=== PATIENT | female | born 1970 | race Caucasian/White ===

== ENCOUNTER 2016-11-17 09:43 | Emergency (ER) | payer OTHER ==
[2016-11-17 09:48] VITALS: TEMP 98.5; BMI 24.0
[2016-11-17] MEDS ORDERED: Sodium Chloride 0.9% 1,000 ML IV STA (10:06)
[2016-11-17 10:37] LABS: ADD MANUAL DIFF? NO
[2016-11-17 10:49] LABS: ALB/GLOB RATIO 1.2 (1.1-1.8); ALKALINE PHOSPHATASE 56 U/L (38-133); ALT/SGPT 25 U/L (7-56); AST/SGOT 37 U/L (15-39); BILIRUBIN,TOTAL 1.2 mg/dL (0.2-1.3); BLOOD UREA NITROGEN 9 mg/dL (7-21); CARBON DIOXIDE 27 mmol/L (21-33); CHLORIDE 100 mmol/L (95-110); GFR AFRICAN-AMERICAN > 60; GLUCOSE,RANDOM 112 mg/dL (70-110); LIPASE 35 U/L (23-300); SODIUM 136 mmol/L (132-148); TOTAL PROTEIN 8.3 g/dL (5.8-8.3)
[2016-11-17 10:51] LABS: INR 1.03 (0.93-1.08); PARTIAL THROMBOPLASTIN TIME 30.3 Seconds (23.7-30.8)
[2016-11-17 10:58] LABS: URINE BILIRUBIN NEGATIVE (NEGATIVE); URINE BLOOD LARGE (NEGATIVE); URINE GLUCOSE (UA) NEGATIVE (NEGATIVE); URINE KETONE NEGATIVE (NEGATIVE); URINE LEUKOCYTE ESTERASE NEGATIVE Leu/uL (NEGATIVE); URINE PROTEIN NEGATIVE mg/dL (<30 mg/dL); URINE UROBILINOGEN 0.2 E.U./dL (<1 E.U./dL)
[2016-11-17 10:59] LABS: URINE APPEARANCE SL CLOUDY (CLEAR); URINE COLOR YELLOW (YELLOW)
[2016-11-17 11:00] LABS: BASO # 0.01 K/mm3 (0.0-2.0); BASO % 0.1 % (0.0-3.0); EOS # 0.1 (0.0-0.7); EOS % 0.5 % (1.5-5.0); GRAN # 8.51 (1.4-6.5); GRAN % 80.9 % (50.0-68.0); HEMATOCRIT 34.5 % (36.0-48.0); LYMPH # 1.4 (1.2-3.4); LYMPH % 12.8 % (22.0-35.0); MEAN CELL VOLUME 92.5 fL (80.0-105.0); MEAN CORPUSCULAR HEMOGLOBIN 32.2 pg (25.0-35.0); MEAN CORPUSCULAR HGB CONC 34.8 g/dl (31.0-37.0); MEAN PLATELET VOLUME 9.8 fl (7.0-11.0); MONO # 0.6 (0.1-0.6); MONO % 5.7 % (1.0-6.0); PLATELET COUNT 290 10^3/uL (120.0-450.0); RED CELL DISTRIBUTION WIDTH 12.1 % (11.5-14.5); WHITE BLOOD COUNT 10.5 10^3/ul (4.5-11.0)
[2016-11-17 11:02] LABS: URINE RBC 15 - 20 /hpf (0-2); URINE WBC 0 - 2 /hpf (0-6)
--- NOTE | 2016-11-17 11:20 | ED PDOC ---
Arrival/HPI - General Historian: Patient - General Chief Complaint: Abdominal Pain Time Seen by Provider: 11/17/16 09:56 - History of Present Illness Narrative History of Present Illness (Text): 11/17/16 11:17 46yo female with PMHx of RA and hypercholestrol present with complaint of sharp diffuse abdominal pain with associated nausea, vomiting and diarrhea x 2days. The last time she vomited was yesterday. Had an episode of diarrhea this morning. States she came to ED because her pain became increasingly worse. She notes that her sister had similar symptoms before her. she denies melena, hematemesis, tearing/ripping upper back pain, fever, chills, travel, urinary symptoms, chest pain. (Miquel Bennett) Past Medical History - Provider Review Nursing Documentation Reviewed: Yes - Infectious Disease Hx of Infectious Diseases: None - Tetanus Immunization Tetanus Immunization: Unknown - Cardiac Hx Cardiac Disorders: No - Pulmonary Hx Respiratory Disorders: No - Neurological Hx Neurological Disorder: No - HEENT Hx HEENT Disorder: No - Renal Hx Renal Disorder: No - Endocrine/Metabolic Hx Endocrine Disorders: No Other/Comment: RA - Hematological/Oncological Other/Comment: RHEUMATOID ARTHRITIS - Integumentary Hx Dermatological Disorder: No - Musculoskeletal/Rheumatological Hx Arthritis: Yes Other/Comment: RA - Gastrointestinal Hx Gastrointestinal Disorders: No - Genitourinary/Gynecological Hx Genitourinary Disorders: No - Psychiatric Hx Psychophysiologic Disorder: No Hx Depression: No Hx Emotional Abuse: No Hx Physical Abuse: No Hx Substance Use: No - Surgical History Hx Appendectomy: Yes Hx Section: Yes - Anesthesia Hx Anesthesia: No - Suicidal Assessment Feels Threatened In Home Enviroment: No Family/Social History - Physician Review Nursing Documentation Reviewed: Yes Family/Social History: Unknown Family HX Smoking Status: Never Smoked Hx Alcohol Use: No Hx Substance Use: No Hx Substance Use Treatment: No Allergies/Home Meds Allergies/Adverse Reactions: Allergies No Known Allergies Allergy (Verified 11/17/16 09:48) Home Medications: Home Meds Medication Instructions Recorded Confirmed Methotrexate Sodium/Pf 10 mg IM QWK 03/01/12 11/17/16 [Methotrexate] Etanercept [Enbrel] 50 mg IM QWK 03/31/14 11/17/16 Simvastatin [Simvastatin] 10 mg PO DAILY 11/17/16 11/17/16 Review of Systems - Physician Review All systems were reviewed & negative as marked: Yes - Review of Systems Constitutional: Normal Eyes: Normal ENT: Normal Respiratory: Normal Cardiovascular: Normal Gastrointestinal: Abdominal Pain, Diarrhea, Nausea, Vomiting. absent: Constipation, Hematochezia, Hematemesis Genitourinary Female: Normal Musculoskeletal: Normal Skin: Normal Neurological: Normal Endocrine: Normal Hemo/Lymphatic: Normal Psychiatric: Normal Physical Exam Vital Signs Reviewed: Yes Temperature: Afebrile Blood Pressure: Normal Pulse: Regular Respiratory Rate: Normal Appearance: Positive for: Well-Appearing, Non-Toxic, Comfortable Pain Distress: None Mental Status: Positive for: Alert and Oriented X 3 - Systems Exam Head: Present: Atraumatic, Normocephalic Pupils: Present: PERRL Extroacular Muscles: Present: EOMI Conjunctiva: Present: Normal Mouth: Present: Moist Mucous Membranes Neck: Present: Normal Range of Motion Respiratory/Chest: Present: Clear to Auscultation, Good Air Exchange. No: Respiratory Distress, Accessory Muscle Use Cardiovascular: Present: Regular Rate and Rhythm, Normal S1, S2. No: Murmurs Abdomen: Present: Tenderness (Diffuse tenderness), Normal Bowel Sounds, Scars ( Healed surgical scar noted), Other (Soft). No: Distention, Peritoneal Signs, Rebound, Guarding, McBurney's Point Tender, Rovsing's Sign Present Back: Present: Normal Inspection Upper Extremity: Present: Normal Inspection. No: Cyanosis, Edema Lower Extremity: Present: Normal Inspection. No: Edema Neurological: Present: GCS=15, CN II-XII Intact, Speech Normal Skin: Present: Warm, Dry, Normal Color. No: Rashes Psychiatric: Present: Alert, Oriented x 3, Normal Insight, Normal Concentration Medical Decision Making ED Course and Treatment: 11/17/16 11:24 PT presented for stated history. On re evaluation she stated her pain resolved. She was sleeping comfortably in ED. Her lab was unremarkable. Result was DW the pt. she was advised to follow BRAT diet. Referred to her PMD/GI. Advised TRT ED for any new or worsening symptoms. She expressed understanding of the given instructions. (Sabrina,Happiness A) I was available for consultation during PA evaluation. The chart was reviewed by me, and I agree with disposition. The documented history was done by the physician fence machine operator. The documented physical exam was done by the physician fence machine operator. The documented procedures were done by the physician fence machine operator. (Rock Vázquez) - Lab Interpretations Lab Results: 11/17/16 10:36 11/17/16 10:36 Lab Results 11/17/16 10:36: Sodium 136, Potassium 4.0, Chloride 100, Carbon Dioxide 27, Anion Gap 13, BUN 9, Creatinine 0.7, Est GFR ( Amer) > 60, Est GFR (Non- Af Amer) > 60, Random Glucose 112 H, Calcium 9.0, Total Bilirubin 1.2, AST 37, ALT 25, Alkaline Phosphatase 56, Total Protein 8.3, Albumin 4.5, Globulin 3.8, Albumin/Globulin Ratio 1.2, Lipase 35 11/17/16 10:36: Urine Color Yellow, Urine Appearance Sl cloudy, Urine pH 6.0, Ur Specific Luana 1.010, Urine Protein Negative, Urine Glucose (UA) Negative, Urine Ketones Negative, Urine Blood Large H, Urine Nitrate Negative, Urine Bilirubin Negative, Urine Urobilinogen 0.2, Ur Leukocyte Esterase Negative, Urine RBC 15 - 20, Urine WBC 0 - 2 11/17/16 10:36: PT 11.1, INR 1.03, APTT 30.3 11/17/16 10:36: WBC 10.5 D, RBC 3.73, Hgb 12.0, Hct 34.5 L, MCV 92.5, MCH 32.2 , MCHC 34.8, RDW 12.1, Plt Count 290, MPV 9.8, Gran % 80.9 H, Lymph % (Auto) 12.8 L, [place] % (Auto) 5.7, Eos % (Auto) 0.5 L, Baso % (Auto) 0.1, Gran # 8.51 H , Lymph # 1.4, [place] # 0.6, Eos # 0.1, Baso # 0.01 - Medication Orders Current Medication Orders: Discontinued Medications Famotidine (Pepcid) 20 mg IVP STAT STA Stop: 11/17/16 10:07 Last Admin: 11/17/16 10:34 Dose: 20 mg Sodium Chloride (Sodium Chloride 0.9%) 1,000 mls @ 1,000 mls/hr IV .Q1H STA Stop: 11/17/16 11:05 Last Admin: 11/17/16 10:34 Dose: 1,000 mls/hr Ondansetron HCl (Zofran Inj) 4 mg IVP STAT STA Stop: 11/17/16 10:07 Last Admin: 11/17/16 10:34 Dose: 4 mg Disposition/Present on Arrival - Present on Arrival Any Indicators Present on Arrival: No History of DVT/PE: No History of Uncontrolled Diabetes: No Urinary Catheter: No History of Decub. Ulcer: No History Surgical Site Infection Following: None - Disposition Have Diagnosis and Disposition been Completed?: Yes Disposition Time: 11:30 Patient Plan: Discharge - Disposition Diagnosis: Abdominal pain Disposition: HOME/ ROUTINE Patient Problems: Current Active Problems Problem Status Onset Abdominal pain Acute Condition: STABLE Discharge Instructions (ExitCare): Abdominal Pain (ED) Additional Instructions: Follow BRAT diet for 24hrs Follow up with your Doctor/GI Return to ED for any new or worsening symptoms Prescriptions: Famotidine [Pepcid] 20 mg PO BID #10 tab Ondansetron [Zofran Odt] 4 mg PO Q6 #7 odt Referrals: Odilia Rubin MD [Primary Care Provider] - Follow up with primary Capo Hobbs DO [Staff Provider] - Follow up with primary
[2016-11-17 11:47] VITALS: BP 119/79; PULSE 84; RESP 17; O2SAT 100
== END 2016-11-17 12:11 | disposition home or self-care (01) ==
LOC: ED 09:43
DX: R10.9 Unspecified abdominal pain (principal)
CPT/HCPCS: 80053; 81001; 83690; 85025; 85610; 85730; 96361; 96374; 96375; 99283; J2405; J7040